=== PATIENT | male | born 1965 | race Caucasian/White ===

== ENCOUNTER 2017-08-14 11:18 | Emergency (ER) | payer SELFPAY ==
[2017-08-14 12:59] LABS: ABS Basophils 0.1 10^3/ul (0-0.2); ABS Eosinophils 0.1 10^3/ul (0-0.6); ABS Lymphocytes 2.5 10^3/ul (1.0-4.8); ABS Monocytes 0.7 10^3/ul (0-0.8); ABS Neutrophils 8.3 10^3/ul (1.5-7.7); ABS Nucleated RBC 0 10^3/ul; Eosinophil % 1.2 % (0-6); Hematocrit 46 % (42-52); Hemoglobin 16.1 g/dl (14.0-18.0); Lymphocyte % 21.5 % (25-47); Mean Corpuscular HGB Conc 35 g/dl (31-36); Mean Corpuscular Hemoglobin 32 pg (27-31); Mean Corpuscular Volume 91 fL (80-94); Mean Platelet Volume 7 um3 (7.4-10.4); Nucleated Red Blood Cells % 0.1; Platelet Count 270 10^3/ul (150-450); Red Blood Count 5.07 10^6/ul (4.0-5.4); Red Cell Distribution Width 14 % (10.5-15); White Blood Count 11.8 10^3/ul (3.5-10.8)
[2017-08-14 13:08] LABS: INR 0.91 (0.77-1.02)
[2017-08-14 13:13] LABS: EGFR Non-African American 113.7 (>60)
[2017-08-14] MEDS ORDERED: NS 0.9% 1000 ML* 1,000 ML IV ONE (14:08)
[2017-08-14] MEDS ORDERED: Meperidine SYRINGE* 50 MG/ML IV ONE (14:08)
[2017-08-14] MEDS ORDERED: Ondansetron INJ* 2 MG/ML VIAL IV ONE (14:09)
--- NOTE | 2017-08-14 14:29 | RAD ---
Indication: Abdominal pain. 2 views of the chest including dual energy PA views are reviewed. No prior study is available for comparison. No mediastinal shift is noted. Heart is of normal size and configuration. Lung flores appear clear. IMPRESSION: No active cardiopulmonary disease is noted.
[2017-08-14 14:40] LABS: Urine Appearance Clear; Urine Blood Negative (Negative); Urine Color Yellow; Urine Ketones Negative (Negative); Urine Protein Negative (Negative); Urine Specific Gravity 1.014 (1.010-1.030); Urine Urobilinogen Negative (Negative)
[2017-08-14] MEDS ORDERED: Iohexol 300* (CONTRAST) 10 ML SDV IV ONE (16:27)
--- NOTE | 2017-08-14 16:54 | RAD ---
INDICATION: Left lower quadrant abdominal pain, family history of colon carcinoma. COMPARISON: There are no prior studies available for comparison. TECHNIQUE: A CT scan of the abdomen and pelvis was performed with intravenous and oral contrast following intravenous injection of 83 ml of Omnipaque 300 nonionic contrast. Contiguous axial sections were obtained from the lung bases through the symphysis pubis. Images were reconstructed in the coronal and sagittal planes. FINDINGS: The lung bases are clear. No pleural effusion is present. The liver and spleen are normal in size. There is a small hypodense lesion in the lateral segment of the left hepatic lobe measuring 5 mm in size which is too small to characterize by CT although most likely represents a cyst. No calcified gallstones are seen. The pancreas appears to be within normal limits. The kidneys and adrenal glands are normal in size. No hydronephrosis is seen. No significant focal renal abnormality is seen. The abdominal aorta is normal in caliber. There is mild to moderate plaque present. No significant enlarged retroperitoneal lymph nodes are seen. The stomach, small and large bowel appear nondistended. The appendix is within normal limits. There is mild descending and sigmoid diverticulosis. There is no evidence for diverticulitis or colitis. No free intraperitoneal air or fluid is seen. No significant focal osseous abnormality is seen. IMPRESSION: NO EVIDENCE FOR ACUTE FINDING OR CAUSE FOR THE PATIENT'S ABDOMINAL PAIN IS SEEN.
[2017-08-14 17:41] VITALS: BP 116/70
--- NOTE | 2017-08-14 21:54 | ED ---
Eduardo Amos Tiffany, scribed for Iliana Atkins MD on 08/14/17 at 1402 . Abdominal Pain/Male - HPI Summary HPI Summary: The patient is a 51 year old M presenting to [facility] accompanied by brother-in- law with a chief complaint of left-sided abdominal pain since five days ago. The patient rates the pain 6/10 in severity. Symptoms aggravated by nothing. Symptoms alleviated by nothing. Patient reports that he gets bloated on his left side when he eats. Patient denies nausea and vomiting. He additionally thinks he might have a hernia midline. His nlsejzy-eh-rst is concerned that patients eye whites turn yellow sometimes. - History of Current Complaint Chief Complaint: EDAbdPain Stated Complaint: LT FLANK PAIN Time Seen by Provider: 08/14/17 12:31 Hx Obtained From: Patient Onset/Duration: Lasting Days - Five days, Still Present Severity Currently: Moderate Pain Intensity: 6 Pain Scale Used: 0-10 Numeric Location: Other - Left side Aggravating Factor(s): Nothing Alleviating Factor(s): Nothing Associated Signs And Symptoms: Positive: Negative - nausea and vomiting - Allergies/Home Medications Allergies/Adverse Reactions: Allergies Allergy/AdvReac Type Severity Reaction Status Date / Time No Known Allergies Allergy Verified 08/14/17 12:45 PMH/Surg Hx/FS Hx/Imm Hx Previously Healthy: Yes Endocrine/Hematology History: Denies: Hx Diabetes Cardiovascular History: Denies: Hx Hypertension Infectious Disease History: No Infectious Disease History: Denies: Traveled Outside the [place] in Last 30 Days - Family History Known Family History: Positive: Diabetes - Mother, Other - Father had colon cancer, mother had diverticulitis - Social History Alcohol Use: None Hx Substance Use: No Substance Use Type: Reports: None Hx Tobacco Use: Yes Smoking Status (MU): Light Every Day Tobacco Smoker Review of Systems Positive: Other - He additionally thinks he might have a hernia midline Positive: Other - His wdxycmv-he-oey is concerned that patients eye whites turn yellow sometimes. Positive: Abdominal Pain - Left-sided, Other. Negative: Vomiting, Nausea All Other Systems Reviewed And Are Negative: Yes Physical Exam - Summary Physical Exam Summary: Appearance: Ill-appearing, moderate pain distress, Well-nourished Skin: Warm, color reflects adequate perfusion Head: Normal Head/Face inspection Eyes: Conjunctiva clear ENT: Normal inspection Neck: Supple, no nodes, no JVD. Respiratory: Lungs clear, Normal breath sounds, no respiratory distress Cardio: RRR, No murmur, pulses normal, brisk capillary refill Abdomen: soft, nontender Bowel sounds: present Musculoskeletal: Strength Intact/ ROM intact. No calf tenderness. No edema. Neuro: Alert, muscle tone normal, facial symmetry, speech normal, sensory/motor intact Psychological: Normal Triage Information Reviewed: Yes Vital Signs On Initial Exam: Initial Vitals Temp Pulse Resp BP Pulse Ox 97.8 F 73 18 137/74 96 08/14/17 11:21 08/14/17 11:21 08/14/17 11:21 08/14/17 11:21 08/14/17 11:21 Vital Signs Reviewed: Yes Diagnostics - Vital Signs Vital Signs Temp Pulse Resp BP Pulse Ox 08/14/17 12:33 72 97 08/14/17 12:31 133/71 08/14/17 11:21 97.8 F 73 18 137/74 96 - Laboratory Lab Results: Lab Results 08/14/17 08/14/17 08/14/17 Range/Units 12:45 12:45 12:45 WBC 11.8 H (3.5-10.8) 10^3/ul RBC 5.07 (4.0-5.4) 10^6/ul Hgb 16.1 (14.0-18.0) g/dl Hct 46 (42-52) % MCV 91 (80-94) fL MCH 32 H (27-31) pg MCHC 35 (31-36) g/dl RDW 14 (10.5-15) % Plt Count 270 (150-450) 10^3/ul MPV 7 L (7.4-10.4) um3 Neut % (Auto) 70.2 (38-83) % Lymph % (Auto) 21.5 L (25-47) % [place] % (Auto) 6.0 (1-9) % Eos % (Auto) 1.2 (0-6) % Baso % (Auto) 1.1 (0-2) % Absolute Neuts (auto) 8.3 H (1.5-7.7) 10^3/ul Absolute Lymphs (auto) 2.5 (1.0-4.8) 10^3/ul Absolute Monos (auto) 0.7 (0-0.8) 10^3/ul Absolute Eos (auto) 0.1 (0-0.6) 10^3/ul Absolute Basos (auto) 0.1 (0-0.2) 10^3/ul Absolute Nucleated RBC 0 10^3/ul Nucleated RBC % 0.1 INR (Anticoag Therapy) 0.91 (0.77-1.02) Sodium 133 (133-145) mmol/L Potassium 4.3 (3.5-5.0) mmol/L Chloride 102 (101-111) mmol/L Carbon Dioxide 27 (22-32) mmol/L Anion Gap 4 (2-11) mmol/L BUN 13 (6-24) mg/dL Creatinine 0.73 (0.67-1.17) mg/dL Est GFR ( Amer) 146.3 (>60) Est GFR (Non-Af Amer) 113.7 (>60) BUN/Creatinine Ratio 17.8 (8-20) Glucose 90 (70-100) mg/dL Lactic Acid (0.5-2.0) mmol/L Calcium 9.6 (8.6-10.3) mg/dL Magnesium 2.2 (1.9-2.7) mg/dL Total Bilirubin 0.40 (0.2-1.0) mg/dL AST 17 (13-39) U/L ALT 20 (7-52) U/L Alkaline Phosphatase 69 (34-104) U/L Total Creatine Kinase 34 (10-223) U/L Troponin I 0.00 (<0.04) ng/mL C-Reactive Protein 1.63 (< 5.00) mg/L Total Protein 7.7 (6.4-8.9) g/dL Albumin 4.3 (3.2-5.2) g/dL Globulin 3.4 (2-4) g/dL Albumin/Globulin Ratio 1.3 (1-3) Amylase 31 (29-103) U/L Lipase 23 (11.0-82.0) U/L 08/14/17 Range/Units 12:45 WBC (3.5-10.8) 10^3/ul RBC (4.0-5.4) 10^6/ul Hgb (14.0-18.0) g/dl Hct (42-52) % MCV (80-94) fL MCH (27-31) pg MCHC (31-36) g/dl RDW (10.5-15) % Plt Count (150-450) 10^3/ul MPV (7.4-10.4) um3 Neut % (Auto) (38-83) % Lymph % (Auto) (25-47) % [place] % (Auto) (1-9) % Eos % (Auto) (0-6) % Baso % (Auto) (0-2) % Absolute Neuts (auto) (1.5-7.7) 10^3/ul Absolute Lymphs (auto) (1.0-4.8) 10^3/ul Absolute Monos (auto) (0-0.8) 10^3/ul Absolute Eos (auto) (0-0.6) 10^3/ul Absolute Basos (auto) (0-0.2) 10^3/ul Absolute Nucleated RBC 10^3/ul Nucleated RBC % INR (Anticoag Therapy) (0.77-1.02) Sodium (133-145) mmol/L Potassium (3.5-5.0) mmol/L Chloride (101-111) mmol/L Carbon Dioxide (22-32) mmol/L Anion Gap (2-11) mmol/L BUN (6-24) mg/dL Creatinine (0.67-1.17) mg/dL Est GFR ( Amer) (>60) Est GFR (Non-Af Amer) (>60) BUN/Creatinine Ratio (8-20) Glucose (70-100) mg/dL Lactic Acid 1.0 (0.5-2.0) mmol/L Calcium (8.6-10.3) mg/dL Magnesium (1.9-2.7) mg/dL Total Bilirubin (0.2-1.0) mg/dL AST (13-39) U/L ALT (7-52) U/L Alkaline Phosphatase (34-104) U/L Total Creatine Kinase (10-223) U/L Troponin I (<0.04) ng/mL C-Reactive Protein (< 5.00) mg/L Total Protein (6.4-8.9) g/dL Albumin (3.2-5.2) g/dL Globulin (2-4) g/dL Albumin/Globulin Ratio (1-3) Amylase (29-103) U/L Lipase (11.0-82.0) U/L Result Diagrams: 08/14/17 12:45 08/14/17 12:45 Lab Statement: Any lab studies that have been ordered have been reviewed, and results considered in the medical decision making process. - Radiology CXR Radiology Interpretation Completed By: Radiologist - No active cardiopulmonary disease is noted. ED physician has reviewed this radiology report. - CT Abd/Pel CT Interpretation Completed By: Radiologist - NO EVIDENCE FOR ACUTE FINDING OR CAUSE FOR THE PATIENT'S ABDOMINAL PAIN IS SEEN. ED physician has reviewed this report. Abdominal Pain Fem Course/Dx - Course Course Of Treatment: High blood pressure noted. Normal CXR. Normal CT Abdomen/ Pelvis. Normal labs. In the ED course, the patient was given Demerol and Zofran. Patient will be discharged and advised to establish a primary care provider. The patient is agreeable with this plan. Discharge - Discharge Plan Condition: Stable Disposition: HOME Patient Education Materials: Abdominal Pain (ED) Referrals: [facility] [place] [facility]ERR[facility] [Outside] - 3 Days Additional Instructions: We have given you a copy of your CT result today. We did not discover a serious cause for your pain today. You should get established with a provider. Return to the ER if you have any new or worsening symptoms. The documentation as recorded by the Eduardo downing Tiffany accurately reflects the service I personally performed and the decisions made by , Iliana Atkins MD.
== END 2017-08-14 17:39 | disposition home or self-care (01) ==
LOC: ED 11:18
DX: R10.9 Unspecified abdominal pain (principal); F17.200 Nicotine dependence, unspecified, uncomplicated
CPT/HCPCS: 36415; 71046; 74177; 80053; 81003; 82150; 82550; 83605; 83690; 83735; 84484; 85025; 85610; 86140; 93005; 96361; 96374; 96375; 99283; J2175; J2405; Q9967

== ENCOUNTER 2019-04-23 16:14 | Emergency (ER) | payer SELFPAY ==
--- NOTE | 2019-04-23 18:32 | ED ---
Lower Extremity - HPI Summary HPI Summary: Pt is a 53 y/o M presenting to the ED with a chief complaint of knee pain. The pt states every time he goes to walk or straighten his leg, he feels as though someone is pulling on the back of his L knee. He reports edema, and notes that the area gets warm sometimes and the pain is worsened when walking downhill. He denies redness or fevers. 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 No hx of trauma, no hx DVT. + Smoker. No recent long travel. - History of Current Complaint Chief Complaint: EDExtremityLower Stated Complaint: LEFT KNEE PAIN Time Seen by Provider: 04/23/19 16:57 Hx Obtained From: Patient Mechanism Of Injury: Unknown Onset/Duration: Weeks Severity Initially: Moderate Severity Currently: Severe Pain Intensity: 9 Pain Scale Used: 0-10 Numeric Timing: Constant, Lasting Weeks Location: Is Discrete @ - L knee Associated Signs And Symptoms: Positive: Swelling, Knee Pain. Negative: Redness , Fever Aggravating Factor(s): Other - walking downhill Alleviating Factor(s): Nothing Able to Bear Weight: Yes - Allergies/Home Medications Allergies/Adverse Reactions: Allergies Allergy/AdvReac Type Severity Reaction Status Date / Time No Known Allergies Allergy Verified 02/18/19 16:59 PMH/Surg Hx/FS Hx/Imm Hx Previously Healthy: Yes Endocrine/Hematology History: Denies: Hx Diabetes Cardiovascular History: Denies: Hx Hypertension - Surgical History Surgery Procedure, Year, and Place: Hernia 06/12 - Immunization History Immunizations Up to Date: Yes Infectious Disease History: No Infectious Disease History: Denies: Traveled Outside the [place] in Last 30 Days - Family History Known Family History: Positive: Diabetes - Mother, Other - Father had colon cancer, mother had diverticulitis - Social History Alcohol Use: None Hx Substance Use: No Substance Use Type: Reports: Marijuana Substance Use Comment - Amount & Last Used: daily Hx Tobacco Use: Yes Smoking Status (MU): Heavy Every Day Tobacco Smoker Review of Systems Negative: Fever Positive: Myalgia - someone is tugging on the back of his L knee, Edema - L knee Negative: Other - erythema of L knee All Other Systems Reviewed And Are Negative: Yes Physical Exam - Summary Physical Exam Summary: General: Well appearing, no distress HEENT: PERRL Cardiovascular: Skin is well perfused Pulmonary: No respiratory distress, no tachypnea Abdomen: Non-distended Skin: Warm, pink, dry MSK: Soft tissue swelling of L knee with full ROM. Tenderness to the popliteal fossa. No erythema. No ankle swelling. Psych: Normal affect Neuro: A&Ox3 Triage Information Reviewed: Yes Vital Signs On Initial Exam: Initial Vitals Temp Pulse Resp BP Pulse Ox 98.1 F 98 18 137/94 98 04/23/19 16:17 04/23/19 16:17 04/23/19 16:17 04/23/19 16:17 04/23/19 16:17 Vital Signs Reviewed: Yes Procedures - Sedation Patient Received Moderate/Deep Sedation with Procedure: No Diagnostics - Vital Signs Vital Signs Temp Pulse Resp BP Pulse Ox 04/23/19 16:17 98.1 F 98 18 137/94 98 - Laboratory Lab Statement: Any lab studies that have been ordered have been reviewed, and results considered in the medical decision making process. - Radiology Knee XR Radiology Interpretation Completed By: Radiologist Summary of Radiographic Findings: No significant degenerative change or an acute abnormality. Mild demineralization. ED physician has reviewed this report. Re-Evaluation - Re-Evaluation First Eval Re-Evaluation Time: 19:00 Comment: US c/w Forman's cyst. Patient updated on plan, told to dec activity that puts stress on his knees. Lower Extremity Course/Dx - Course Course Of Treatment: 53-year-old male presents with left knee pain next line physical exam with tenderness along posterior left knee with soft tissue swelling. No obvious effusions on exam. Full range of motion, no erythema, low suspicion for septic joint. We'll check an ultrasound. Differential includes DVT, Forman's cyst, traumatic injury. We'll give Motrin for pain. - Diagnoses Provider Diagnoses: Knee pain, Forman cyst Discharge ED - Sign-Out/Discharge Documenting (check all that apply): Patient Departure - Discharge Plan Condition: Stable Disposition: HOME Patient Education Materials: Bakers Cyst (ED), Knee Pain (ED) Referrals: [facility] [Outside] Additional Instructions: You were seen in the emergency department for knee pain. Your x-ray showed degenerative changes, your ultrasound showed a Forman's cyst. You can take Motrin 800 mg every 6-8 hours as needed for pain If any studies were not completed at the time of discharge you will be called with the relevant results. Please follow up with your primary care doctor in next 2-3 days and return to emergency department for worsening or concerning symptoms. It was a pleasure taking care of you today. - Billing Disposition and Condition Condition: STABLE Disposition: Home - Attestation Statements Document Initiated by Arron: Yes Documenting Scribe: Maegan Ahumada Provider For Whom Arron is Documenting (Include Credential): Manuela Harper MD. Scribe Attestation: I, Maegan Ahumada, scribed for Manuela Harper MD. on 04/23/19 at 1908. Scribe Documentation Reviewed: Yes Provider Attestation: The documentation as recorded by the scribe, Maegan Ahumada accurately reflects the service I personally performed and the decisions made by me, Manueal Harper MD. Status of Scribe Document: Viewed
[2019-04-23] MEDS ORDERED: Ibuprofen TAB* 800 MG PO ONE (19:04)
[2019-04-23 19:08] VITALS: BP 132/78
== END 2019-04-23 19:29 | disposition home or self-care (01) ==
LOC: ED 16:14
DX: M71.22 Synovial cyst of popliteal space [Baker], left knee (principal); R60.0 Localized edema; F17.210 Nicotine dependence, cigarettes, uncomplicated
CPT/HCPCS: 99281; A9270-GY